=== PATIENT | male | born 1955 | race Caucasian/White ===

== ENCOUNTER 2020-10-16 19:09 | Emergency (ER) | payer MEDICARE, OTHER ==
[~2020-10-16] VITALS: Ht 172.7 cm; Wt 94.3 kg
[2020-10-16] MEDS ORDERED: LOSARTAN-HCTZ1 EAC3 PO (19:36)
[2020-10-16] MEDS ORDERED: KAPSPARGO SPRIN50 MG PO (19:36)
[2020-10-16] MEDS ORDERED: METFORMIN HCL500 M3 PO (19:37)
[2020-10-16] MEDS ORDERED: LIPITOR40 MG PO (19:38)
[2020-10-16 19:54] LABS: ABSOLUTE BASOPHILS 0.1 thou/uL (0.0-0.2); ABSOLUTE EOSINOPHILS 0.2 thou/uL (0.0-0.7); ABSOLUTE LYMPHOCYTES 2.5 thou/uL (0.8-5.3); ABSOLUTE MONOCYTES 0.9 thou/uL (0.0-1.2); ABSOLUTE NEUTROPHILS 6.8 thou/uL (1.6-8.1); BASOPHILS 1.2 %; EOSINOPHILS 1.6 %; HEMATOCRIT 38.5 % (42.0-52.0); LYMPHOCYTES 23.6 %; MCH 28.8 pg (26.0-34.0); MCHC 33.6 g/dL (28.0-37.0); MCV 85.7 fL (80.0-100.0); MONOCYTES 8.3 %; NUCLEATED RBCS 0 /100WBC; PLATELET COUNT* 280 thou/uL (150-400); POLYS 65.3 %; RBC 4.49 mil/uL (4.50-6.00); RDW-CV 13.9 % (10.5-14.5); WBC 10.5 thou/uL (4.0-11.0)
[2020-10-16 20:03] LABS: CALCIUM 8.3 mg/dL (8.5-10.1); POTASSIUM 3.4 mmol/L (3.5-5.1)
[2020-10-16 20:14] LABS: ALBUMIN 3.8 g/dL (3.4-5.0); TOTAL BILIRUBIN 0.4 mg/dL (<0.1-1.0); TOTAL PROTEIN 7.4 g/dL (6.4-8.2)
[2020-10-16 20:45] LABS: INFLUENZA A ANTIGEN Negative (Negative); INFLUENZA B ANTIGEN Negative (Negative)
[2020-10-16 21:07] LABS: URINE BILIRUBIN NEGATIVE (Negative); URINE BLOOD 1+ (Negative); URINE CLARITY CLEAR; URINE COLOR YELLOW; URINE GLUCOSE-RANDOM 1+ (Negative); URINE KETONES TRACE (Negative); URINE LEUKOCYTES-REFLEX NEGATIVE (Negative); URINE NITRITE-REFLEX NEGATIVE (Negative); URINE PROTEIN NEGATIVE (Negative); URINE SPECIFIC GRAVITY 1.015 (1.005-1.030); URINE UROBILINOGEN 0.2 E.U./dl (0.2-1.0)
[2020-10-16 21:24] LABS: BACTERIA-REFLEX None Seen /HPF (None Seen); CASTS None Seen /LPF (None Seen); CRYSTALS None Seen /LPF (None Seen); SQUAMOUS NONE SEEN /LPF (0-3); URINE RBC 3-10 Few /HPF (0-2); URINE WBC-REFLEX None Seen /HPF (0-5)
[2020-10-16] MEDS ORDERED: TEST STRIPS1 EACH INTRADERM (21:51)
[2020-10-16 22:00] VITALS: BP 161/88
--- NOTE | 2020-10-17 09:42 | EKG ---
[place] [address] ELECTROCARDIOGRAM REPORT Name: JOS CRISTINA Room: [facility]#: [id number] Admission: 10/16/20 Attend Phys: Discharge: 10/16/20 Date of : 51 Date of Service: 10/16/[address] [facility] [place] Report #: [id number] THIS REPORT FOR: //name// [facility] ED Test Date: 2020-10-16 Test Time: 20:05:04 Pat Name: JOS CRISTINA Department: Room: Gender: D[employer] Mixing Machine Operator: [facility] : 1955 Requested By: Essie Francis Order Number: [id number] MD: Robbin Edouard Measurements Intervals Martin Rate: 93 P: 38 W[place]: 159 QRS: -5 QRSD: 118 T: -10 QT: 379 QTc: 472 Interpretive Statements Sinus rhythm IRBBB and LPFB No previous ECG available for comparison Electronically Signed On 10-17-2020 9:41:51 [employer] by Robbin Edouard [email or web address] <ELECTRONICALLY SIGNED> By: Robbin Edouard MD, [facility] 10/17/20 0941 04 04 Robbin Edouard MD, FACC /EPI
== END 2020-10-16 22:06 | disposition home or self-care (01) ==
LOC: M.ERS 19:09
PROVIDERS: Emergency Medicine
DX: E11.65 Type 2 diabetes mellitus with hyperglycemia (principal); Z20.828 Contact with and (suspected) exposure to other viral communicable diseases; R50.9 Fever, unspecified; I10 Essential (primary) hypertension; Z79.899 Other long term (current) drug therapy